=== PATIENT | male | born 1990 | race Caucasian/White ===

== ENCOUNTER 2023-12-15 22:30 | Emergency (ER) | payer SELFPAY ==
[2023-12-15 22:33] VITALS: BP 133/76; PULSE 72; RESP 16; TEMP 36.8; O2SAT 99; BMI 31.2
--- NOTE | 2023-12-15 22:36 | XRR_ITS ---
PROCEDURE INFORMATION: Exam: XR Chest Exam date and time: 12/15/2023 10:39 PM Age: 33 years old Clinical indication: Angina; Additional info: Chest pain TECHNIQUE: Imaging protocol: Radiologic exam of the chest. Views: 1 view. COMPARISON: No relevant prior studies available. FINDINGS: Lungs: The lungs are clear and free of effusion. Pleural spaces: Unremarkable. No pleural effusion. No pneumothorax. Heart/Mediastinum: The heart and mediastinum are unremarkable. Bones/joints: Unremarkable. XR/XR chest 1V portable [id number] IMPRESSION: Unremarkable
--- NOTE | 2023-12-15 22:36 | ECG_ITS ---
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 Measurements Intervals [place] Rate: 70 P: 42 DC: 155 QRS: 59 QRSD: 92 T: 62 QT: 357 QTc: 386 Interpretive Statements SINUS RHYTHM WITH SINUS ARRHYTHMIA INTERPRETATION BASED ON A DEFAULT AGE OF 40 YEARS No previous ECG available for comparison Electronically Signed On 12-16-2023 23:43:04 CDT by Bita Tay M.D. [email or web address] [email or web address] [email or web address] toledoappening/store/NU/[id number] f
--- NOTE | 2023-12-15 22:53 | W.ED.CHESTPA ---
HPI - Chest Pain General: Chief Complaint: Chest Pain Stated Complaint: CP Time Seen by Provider: 12/15/23 22:36 History of Present Illness: Patient presents to the ER with complaints of chest pain on his left side that does not radiate, it is not reproducible, patient states he was at work when he bent over while smoking a cigarette and had some left-sided chest pain, and then he dropped something and bent over to pick it up again and then he had worse pain. He got short of breath. Patient states he is feeling much better now. Patient was given 200 mcg of fentanyl 4 mg Zofran and 324 mg of aspirin and 1 nitro on route. Patient does not have any history of cardiac disease. Patient does smoke. Review of Systems General: Reports: 10 or more systems reviewed and unremarkable except in HPI and below Physical Exam Const: COMMON NORMALS: no acute distress, average body habitus, patient oriented x3, no limitations, healthy appearing, alert and well nourished HENMT: COMMON NORMALS: normocephalic, atraumatic, hearing grossly normal bilaterally, Normal external nose present and moist oral mucous membranes HEAD & SCALP: normocephalic and atraumatic NOSE: Normal external nose present Neck/C-Spine: COMMON NORMALS: no JVD Chest: COMMONS NORMALS: normal inspection of the chest and normal palpation of entire chest wall Resp: COMMON NORMALS: normal respiratory effort, No retractions, No use of accessory muscles and clear to auscultation bilaterally AUSCULTATION: clear to auscultation bilaterally Cardio: COMMON NORMALS: no JVD, regular rate, regular rhythm, S1 normal heart sound present, S2 normal heart sound present, No gallops present (Cardio), No clicks present (Cardio), No murmurs present (Cardio) and No rub (Cardio) RATE: regular rate RHYTHM: regular rhythm HEART SOUNDS: S1 normal heart sound present and S2 normal heart sound present GI: COMMON NORMALS: Normal to inspection, nondistended, normoactive bowel sounds present, Soft to palpation, non-tender, No hepatosplenomegaly present and no masses PALPATION: Yes Soft to palpation and Yes No hepatosplenomegaly present Neuro: COMMON NORMALS: patient oriented x3 SENSORIUM/ORIENTATION: Yes alert Course Vital Signs: Vital signs: Vital Signs Temperature 98.3 F 12/15/23 22:33 Pulse Rate 66 12/15/23 23:37 Respiratory Rate 18 12/15/23 23:37 Blood Pressure 101/60 12/15/23 23:37 Pulse Oximetry 99 12/15/23 23:37 Oxygen Delivery Me thod Room Air 12/15/23 23:07 MDM - Chest Pain Medical Decision Making Patient was worked up in a standard chest pain fashion with serial EKGs, serial enzymes and chest x-ray, all of which was essentially negative, patient's initial troponin was 7, 2-hour troponin of 6, for negative delta of -1, patient be discharged home and is to follow-up with his PCP for further evaluation and testing. Differential Diagnosis Unlikely acute massive pulmonary embolism, acute respiratory failure, acute myocardial infarction, cardiac arrest or sudden cardiac Medical Records I reviewed the patient's medical records. Lab Data I reviewed the patient's lab results. 12/15/23 22:53 12/15/23 22:53 Radiology Impressions Chest X-Ray 12/15/23 22:36 IMPRESSION: Unremarkable Laboratory Results WBC 8.16 10^3/uL (3.29-11.43) 12/15/23 22:53 RBC 4.73 10^6/uL (3.85-5.65) 12/15/23 22:53 Hgb 13.80 g/dL (11.27-16.99) 12/15/23 22:53 Hct 41.2 % (37-53) 12/15/23 22:53 MCV 87.1 fl (82-101) 12/15/23 22:53 MCH 29.2 pg (27-33) 12/15/23 22:53 MCHC 33.5 g/dL (30-55) 12/15/23 22:53 RDW 13.7 % (12.1-15.1) 12/15/23 22:53 Plt Count 222 10^3/cmm (157-399) 12/15/23 22:53 MPV 9.0 fL (7.4-10.4) 12/15/23 22:53 Neut % (Auto) 57.4 % 12/15/23 22:53 Lymph % (Auto) 29.7 % 12/15/23 22:53 Bond % (Auto) 7.4 % 12/15/23 22:53 Eos % (Auto) 4.4 % 12/15/23 22:53 Baso % (Auto) 0.7 % 12/15/23 22:53 Neut # (Auto) 4.69 10^3/uL (1.8-7.7) 12/15/23 22:53 Lymph # (Auto) 2.4 10^3/uL (0.8-4.8) 12/15/23 22:53 Bond # (Auto) 0.6 10^3/uL (0.2-0.9) 12/15/23 22:53 Eos # (Auto) 0.4 10^3/uL (0.0-0.8) 12/15/23 22:53 Baso # (Auto) 0.1 10^3/uL (0.0-0.1) 12/15/23 22:53 Nucleated RBC % (auto) 0 % 12/15/23 22:53 Nucleated RBCs # 0.0 /100WBC 12/15/23 22:53 Sodium 140 mmol/L (136-145) 12/15/23 22:53 Potassium 3.8 mmol/L (3.5-5.1) 12/15/23 22:53 Chloride 102 mmol/L (98-107) 12/15/23 22:53 Carbon Dioxide 25 mmol/L (22-29) 12/15/23 22:53 Anion Gap 16.8 (5-19) 12/15/23 22:53 BUN 14 mg/dL (6-20) 12/15/23 22:53 Creatinine 0.7 mg/dL (0.7-1.2) 12/15/23 22:53 GFR Calculation 131.5 mL/min (90-130) H 12/15/23 22:53 Glucose 101 mg/dL (65-115) 12/15/23 22:53 Calculated Osmolality 291 mOsm/kg (285-295) 12/15/23 22:53 Calcium 9.1 mg/dL (8.5-10.5) 12/15/23 22:53 Magnesium 2.0 mg/dL (1.7-2.3) 12/15/23 22:53 Total Bilirubin 0.2 mg/dL (0.15-1.2) 12/15/23 22:53 AST 17 U/L (0-40) 12/15/23 22:53 ALT 19 U/L (0-41) 12/15/23 22:53 Alkaline Phosphatase 74 U/L (40-130) 12/15/23 22:53 Troponin T Baseline 7 ng/L (0-15) 12/15/23 22:53 Troponin T 120 Minute 6.00 ng/L (0-15) 12/16/23 00:40 Delta Troponin T -1.00 ABS# (0-10) L 12/16/23 00:40 Total Protein 6.6 g/dL (6.6-8.7) 12/15/23 22:53 Albumin 4.2 g/dL (3.5-5.2) 12/15/23 22:53 Globulin 2.4 g/dL (1.3-4.6) 12/15/23 22:53 All radiology interpretation(s) finalized by discharge Discharge Plan Discharge Patient Disposition: Home Clinical Impression: Atypical chest pain Condition: Stable Discharge Orders: Discharge ED (Routine); Ordered 12/16/23 Ordered By: Rakan Donahue Referrals: Teagan Schmidt FNP [Primary Care Provider] - 1 week Patient Instructions: Chest Pain (ED) Activity Restrictions/Additional Instructions: Evaluation in the ER did not show any acute cause of cardiac chest pain. Your pain is felt to be noncardiac in nature. Please follow-up with your family practice physician for further evaluation and treatment. 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
[2023-12-15 23:07] VITALS: BP 115/60; PULSE 67; RESP 20; O2SAT 100
[2023-12-15 23:08] LABS: Basophils # 0.1 10^3/uL (0.0-0.1); Basophils % 0.7 %; Eosinophils # 0.4 10^3/uL (0.0-0.8); Eosinophils % 4.4 %; Hematocrit 41.2 % (37-53); Lymphocytes # 2.4 10^3/uL (0.8-4.8); Lymphocytes % 29.7 %; Mean Corpuscular HGB Conc 33.5 g/dL (30-55); Mean Corpuscular Hemoglobin 29.2 pg (27-33); Mean Corpuscular Volume 87.1 fl (82-101); Monocytes # 0.6 10^3/uL (0.2-0.9); Monocytes % 7.4 %; Neutrophils # 4.69 10^3/uL (1.8-7.7); Neutrophils % 57.4 %; Nucleated Red Blood Cells % 0 %; Platelet Count 222 10^3/cmm (157-399); Red Blood Count 4.73 10^6/uL (3.85-5.65); Red Cell Distribution Width 13.7 % (12.1-15.1); White Blood Count 8.16 10^3/uL (3.29-11.43)
[2023-12-15 23:25] LABS: Troponin(5th) Baseline 7 ng/L (0-15)
[2023-12-15 23:26] LABS: Alanine Aminotransferase 19 U/L (0-41); Albumin Level 4.2 g/dL (3.5-5.2); Alkaline Phosphatase 74 U/L (40-130); Anion Gap 16.8 (5-19); Aspartate Amino Transferase 17 U/L (0-40); Blood Urea Nitrogen 14 mg/dL (6-20); Calcium 9.1 mg/dL (8.5-10.5); Carbon Dioxide 25 mmol/L (22-29); Chloride 102 mmol/L (98-107); Creatinine Clr Calc Pharmacy 207.7471; Globulin 2.4 g/dL (1.3-4.6); Glomerular Filtration Rate 131.5 mL/min (90-130); Glucose 101 mg/dL (65-115); Osmolality Calculated 291 mOsm/kg (285-295); Potassium 3.8 mmol/L (3.5-5.1); Sodium 140 mmol/L (136-145); Total Bilirubin 0.2 mg/dL (0.15-1.2); Total Protein 6.6 g/dL (6.6-8.7)
[2023-12-15 23:37] VITALS: BP 101/60; PULSE 66; RESP 18; O2SAT 99
[2023-12-16] VITALS: BP 91/52; PULSE 67; RESP 12; O2SAT 97
[2023-12-16 00:15] VITALS: BP 107/70; PULSE 61; RESP 13; O2SAT 98
[2023-12-16 00:30] VITALS: BP 108/74; PULSE 61; RESP 12; O2SAT 96
--- NOTE | 2023-12-16 00:36 | ECG_ITS ---
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 Measurements Intervals [place] Rate: 54 P: 23 VT: 170 QRS: 29 QRSD: 93 T: 46 QT: 412 QTc: 393 Interpretive Statements SINUS BRADYCARDIA WITH SINUS ARRHYTHMIA Compared to ECG 12/15/2023 22:28:23 Sinus rhythm no longer present Electronically Signed On 12-16-2023 23:54:43 CDT by Bita Tay M.D. [email or web address] [facility] [employer]/store/[id number]
[2023-12-16 00:45] VITALS: BP 105/57; PULSE 57; RESP 14; O2SAT 98
[2023-12-16 01:00] VITALS: BP 111/72; PULSE 54; RESP 12; O2SAT 100
[2023-12-16 01:15] VITALS: BP 112/62; PULSE 59; RESP 16; O2SAT 98
== END 2023-12-16 01:38 | disposition home or self-care (01) ==
PROVIDERS: Emergency Provider Emergency Medicine; Family Provider Nurse Practitioner; PCP Nurse Practitioner
DX: R07.89 Other chest pain (principal)
CPT/HCPCS: 36415; 71045; 80053; 83735; 84484; 85025; 93005; 99285